=== PATIENT | female | born 1940 | race Caucasian/White ===

== ENCOUNTER → 2016-06-22 10:32 | Outpatient (CLI) | payer MEDICARE, BC ==
[2011-10-11 16:55] VITALS: BMI 23.4
== END | disposition home or self-care (01) ==
LOC: D.US 10:32
DX: R31.9 Hematuria, unspecified (principal)

== ENCOUNTER → 2016-07-19 07:28 | Outpatient (CLI) | payer MEDICARE, BC ==
[2011-10-11 16:55] VITALS: BMI 23.4
== END | disposition home or self-care (01) ==
LOC: D.RAD 07:28
DX: K21.9 Gastro-esophageal reflux disease without esophagitis (principal); R13.10 Dysphagia, unspecified

== ENCOUNTER 2016-08-06 15:03 | Emergency (ER) | payer MEDICARE, BC ==
[2011-10-11 16:55] VITALS: BMI 23.4
[2016-08-06 16:40] LABS: APPEARANCE CLEAR (CLEAR); BILIRUBIN NEGATIVE (NEGATIVE); COLOR ORANGE (YELLOW); GLUCOSE NEGATIVE (NEGATIVE); KETONE NEGATIVE (NEGATIVE); LEUKOCYTE ESTERASE NEGATIVE (NEGATIVE); NITRITE NEGATIVE (NEGATIVE); PROTEIN NEGATIVE (NEGATIVE); UROBILINOGEN NORMAL (NORMAL)
[2016-08-06 16:41] LABS: BACTERIA NONE SEEN /hpf (NONE SEEN); EPITHELIAL CELLS 0-5 /hpf (0-5); RED CELLS - URINE 0-5 /hpf (0-5); WHITE CELLS - URINE NSEEN /hpf (0-5)
[2016-08-06 17:19] LABS: BASOPHILS 1.1 % (0-2); EOSINOPHILS 0 % (0-7); HEMATOCRIT 34.8 % (36.0-48.0); HEMOGLOBIN 10.6 g/dL (12-16); IMMATURE GRANULOCYTES 0.2 % (0-5); LYMPHOCYTES 22.6 % (15-50); MCH 26.5 pg (26.0-34.0); MCHC 30.5 g/dL (31.0-37.0); MEAN PLATELET VOLUME 9.4 fL (7.4-10.4); MONOCYTES 8.6 % (2-11); NEUTROPHILS 67.5 % (40-80); PLATELET COUNT 274 10x3/uL (130-400); RDW 13.9 % (11.5-14.5); WBC 4.6 10x3/uL (4.8-10.8)
[2016-08-06 17:30] LABS: ANION GAP 14.2 mmol/L (8-16); CALCIUM 9.1 mg/dL (8.5-10.1); CARBON DIOXIDE 24.5 mmol/L (21.0-32.0); CREATININE - SERUM 1.6 mg/dL (0.6-1.3); POTASSIUM - SERUM 4.7 mmol/L (3.5-5.1)
== END 2016-08-06 21:12 | disposition home or self-care (01) ==
LOC: D.ER 15:03
PROVIDERS: Emergency Medicine; Nurse Practitioner Acute Care
DX: E86.0 Dehydration (principal); N28.1 Cyst of kidney, acquired

== ENCOUNTER → 2016-09-08 08:39 | Outpatient (CLI) | payer MEDICARE, BC ==
[2011-10-11 16:55] VITALS: BMI 23.4
== END | disposition home or self-care (01) ==
LOC: D.RAD 08:39
DX: Z86.010 Personal history of colon polyps (principal)

== ENCOUNTER → 2016-09-16 14:04 | Outpatient (CLI) | payer MEDICARE, BC ==
[2011-10-11 16:55] VITALS: BMI 23.4
== END | disposition home or self-care (01) ==
LOC: D.NM 14:04
DX: N13.0 Hydronephrosis with ureteropelvic junction obstruction (principal)

== ENCOUNTER → 2019-10-16 10:15 | Outpatient (CLI) | payer MEDICARE, BC ==
[2011-10-11 16:55] VITALS: BMI 23.4
== END | disposition home or self-care (01) ==
LOC: D.MRI 10-09 10:00
PROVIDERS: ATTEND Family Medicine
DX: R26.81 Unsteadiness on feet (principal)

== ENCOUNTER → 2019-10-21 08:03 | Outpatient (CLI) | payer MEDICARE, BC ==
[2011-10-11 16:55] VITALS: BMI 23.4
== END | disposition home or self-care (01) ==
LOC: D.MRI 08:03
PROVIDERS: ATTEND Family Medicine
DX: M54.16 Radiculopathy, lumbar region (principal)